=== PATIENT | male | born 1975 ===

== ENCOUNTER 2022-08-24 14:47 | Emergency (ER) | payer BC | END 2022-08-24 17:44 | disposition home or self-care (01) | LOC: MW.ED 14:47 | DX: S02.602A Fracture of unspecified part of body of left mandible, initial encounter for closed fracture (principal); S00.01XA Abrasion of scalp, initial encounter; E03.9 Hypothyroidism, unspecified; Z88.0 Allergy status to penicillin; Z79.899 Other long term (current) drug therapy; Y04.0XXA Assault by unarmed brawl or fight, initial encounter | CPT/HCPCS: 70450; 70450-26; 70486; 70486-26; 99284 ==